=== PATIENT | male | born 1970 | race Two or more races ===

== ENCOUNTER 2023-04-28 20:41 | Inpatient (IN) | payer OTHER ==
[2023-04-28 21:10] VITALS: BMI 32.5
[2023-04-28] MEDS ORDERED: chlordiazePOXIDE HCL 25 MG CAPSULE PO PRN (22:23)
[2023-04-28] MEDS ORDERED: ONDANSETRON *ODT* 4 MG TABLET SL PRN (22:23)
[2023-04-28] MEDS ORDERED: guaiFENesin 600 MG TABLET.ER (FP) PO PRN (22:23)
[2023-04-28] MEDS ORDERED: IBUPROFEN 600 MG TABLET (FP) PO PRN (22:23)
[2023-04-28] MEDS ORDERED: BISMUTH SUBSALICYLATE 524 MG/30 ML PO PRN (22:23)
[2023-04-28] MEDS ORDERED: ACETAMINOPHEN 325 MG TABLET (FP) PO PRN (22:23)
[2023-04-28] MEDS ORDERED: IBUPROFEN 400 MG TABLET (FP) PO PRN (22:23)
[2023-04-28] MEDS ORDERED: BENZOCAINE/MENTHOL (CHLORASEPTIC ) LOZENGE MM PRN (22:23)
[2023-04-28] MEDS ORDERED: POLYETHYLENE GLYCOL (HEALTHYLAX) 3350 17 GM PACKET PO PRN (22:23)
[2023-04-28] MEDS ORDERED: MAG HYDROX/AL HYDROX/SIMETH 30 ML UNIT-DOSE CUP PO PRN (22:23)
[2023-04-28] MEDS ORDERED: DICYCLOMINE HCL 10 MG CAPSULE PO PRN (22:23)
[2023-04-28] MEDS ORDERED: BENZONATATE 200 MG CAPSULE PO PRN (22:23)
[2023-04-28] MEDS ORDERED: MAGNESIUM HYDROX 2400MG/30ML ORAL SUSPENSION 30 ML CUP PO PRN (22:23)
[2023-04-28] MEDS ORDERED: NICOTINE POLACRILEX 2 MG GUM BUC PRN (22:24)
[2023-04-28] MEDS ORDERED: chlordiazePOXIDE HCL 25 MG CAPSULE ONE (22:34)
[2023-04-28] MEDS ORDERED: hydrOXYzine PAMOATE 25 MG CAPSULE (FP) PO ONE (22:34)
[2023-04-28] MEDS: hydrOXYzine PAMOATE 25 MG CAPSULE (FP) PO PRN (22:35)
[2023-04-28] MEDS: chlordiazePOXIDE HCL 25 MG CAPSULE PO SCH (22:35)
[2023-04-29] MEDS: chlordiazePOXIDE HCL 25 MG CAPSULE PO SCH ×2 (05:59→10:00)
[2023-04-29] MEDS: PRENATAL VITAMINS W/ FOLIC ACID TABLET (FP) PO SCH (10:00)
[2023-04-29 11:03] LABS: POTASSIUM 3.3 mmol/L (3.5-5.1)
[2023-04-29 11:11] LABS: BLOOD UREA NITROGEN 5.2 mg/dL (7-18); CREATININE 0.9 mg/dL (0.55-1.3)
[2023-04-29 11:12] LABS: ALBUMIN 3.5 g/dl (3.4-5.0); CALCIUM 8.4 mg/dL (8.5-10.1)
[2023-04-29 11:13] LABS: BILIRUBIN,TOTAL 0.4 mg/dL (0.2-1); TOT PROT 6.4 g/dl (6.4-8.2)
[2023-04-29 11:40] LABS: HEMATOCRIT 43.2 % (35.4-49); HEMOGLOBIN 15.1 GM/dL (11.7-16.9); MCH 33.7 pg (25.7-33.7); MCHC 34.9 g/dl (32.0-35.9); MEAN CELL VOLUME 96.4 fl (80-96); MEAN PLT VOLUME 7.3 fl (7.5-11.1); PLATELET COUNT 248 10^3/uL (134-434); RBC 4.49 M/mm3 (4.00-5.60); RDW 12.9 % (11.9-15.9); WHITE BLOOD COUNT 4.8 K/mm3 (4.0-10.0)
[2023-04-29] MEDS ORDERED: POTASSIUM CHLORIDE ORAL LIQUID 20 MEQ/15 ML PO ONE (13:15)
[2023-04-29] MEDS: METHOCARBAMOL 500 MG TABLET PO PRN (13:56)
[2023-04-29] MEDS: hydrOXYzine PAMOATE 25 MG CAPSULE (FP) PO PRN (13:56)
[2023-04-29] MEDS: diazePAM 5 MG TABLET PO PRN ×2 (15:21→22:33)
[2023-04-29] MEDS: diazePAM 5 MG TABLET PO SCH ×2 (17:31→23:14)
[2023-04-29] MEDS ORDERED: MELATONIN 5 MG TABLETS PO SCH (22:00)
[2023-04-29] MEDS: POTASSIUM CHLORIDE ORAL LIQUID 20 MEQ/15 ML PO SCH (22:32)
[2023-04-29] MEDS: THIAMINE HCL 100 MG TABLET (FP) PO SCH (22:32)
[2023-04-29] MEDS: SUVOREXANT 10 MG TABLET PO PRN (22:35)
[2023-04-30] MEDS: diazePAM 5 MG TABLET PO SCH ×4 (04:52→22:19)
[2023-04-30] MEDS: hydrOXYzine PAMOATE 25 MG CAPSULE (FP) PO PRN (04:53)
[2023-04-30] MEDS: LOPERAMIDE HCL 2 MG CAPSULE PO PRN (04:55)
[2023-04-30] MEDS ORDERED: chlordiazePOXIDE HCL 25 MG CAPSULE PO SCH (05:00)
[2023-04-30] MEDS: POTASSIUM CHLORIDE ORAL LIQUID 20 MEQ/15 ML PO SCH ×2 (10:32→22:18)
[2023-04-30] MEDS: PRENATAL VITAMINS W/ FOLIC ACID TABLET (FP) PO SCH (10:32)
[2023-04-30] MEDS: diazePAM 5 MG TABLET PO PRN (13:29)
[2023-04-30] MEDS: THIAMINE HCL 100 MG TABLET (FP) PO SCH (22:18)
[2023-04-30] MEDS: SUVOREXANT 10 MG TABLET PO PRN (22:21)
[2023-05-01] MEDS ORDERED: chlordiazePOXIDE HCL 10 MG CAPSULE PO PRN
[2023-05-01] MEDS ORDERED: chlordiazePOXIDE HCL 10 MG CAPSULE PO SCH (05:00)
[2023-05-01] MEDS: diazePAM 5 MG TABLET PO SCH ×3 (05:27→22:32)
[2023-05-01] MEDS: METHOCARBAMOL 500 MG TABLET PO PRN (10:04)
[2023-05-01] MEDS: POTASSIUM CHLORIDE ORAL LIQUID 20 MEQ/15 ML PO SCH (10:04)
[2023-05-01] MEDS: diazePAM 5 MG TABLET PO PRN ×2 (10:04→19:31)
[2023-05-01] MEDS: PRENATAL VITAMINS W/ FOLIC ACID TABLET (FP) PO SCH (10:05)
[2023-05-01] MEDS: THIAMINE HCL 100 MG TABLET (FP) PO SCH (22:33)
[2023-05-01] MEDS: SUVOREXANT 10 MG TABLET PO PRN (22:34)
[2023-05-02] MEDS ORDERED: chlordiazePOXIDE HCL 10 MG CAPSULE PO SCH (05:00)
[2023-05-02] MEDS: hydrOXYzine PAMOATE 25 MG CAPSULE (FP) PO PRN (05:26)
[2023-05-02] MEDS: PRENATAL VITAMINS W/ FOLIC ACID TABLET (FP) PO SCH (09:41)
[2023-05-02] MEDS ORDERED: diazePAM 5 MG TABLET PO SCH (10:00)
[2023-05-02] MEDS: LOPERAMIDE HCL 2 MG CAPSULE PO PRN (10:11)
[2023-05-02 13:17] VITALS: BP 141/95; PULSE 88; RESP 19; TEMP 98
[2023-05-03] MEDS ORDERED: chlordiazePOXIDE HCL 10 MG CAPSULE PO ONE (05:00)
[2023-05-03] MEDS ORDERED: diazePAM 5 MG TABLET PO ONE (06:00)
== END 2023-05-02 15:27 | disposition home or self-care (01) | DRG 775 ==
LOC: YASAS 20:41 → Y6N 22:42
PROVIDERS: ADMIT Allergy & Immunology; ATTEND Surgery
PROC: HZ2ZZZZ Detoxification Services for Substance Abuse Treatment (ICD-10-PCS; principal; 2023-04-28)
DX: F10.230 Alcohol dependence with withdrawal, uncomplicated (principal); F17.290 Nicotine dependence, other tobacco product, uncomplicated; F19.282 Other psychoactive substance dependence with psychoactive substance-induced sleep disorder; E87.6 Hypokalemia; Z86.59 Personal history of other mental and behavioral disorders
CPT/HCPCS: 36415; 80053; 84132; 85027; 86780